=== PATIENT | male | born 1940 | race Caucasian/White ===

== ENCOUNTER 2021-11-24 07:09 | Day surgery (SDC) | payer OTHER ==
[~2021-11-24] VITALS: Ht 160 cm; Wt 66.7 kg
[2021-11-24] MEDS ORDERED: ARTICAINE HCL/EPINEPHRINE 4%/1:200,000 BIT 1.7 ML CARTRIDGE IJ ONE (09:00)
[2021-11-24] MEDS ORDERED: NS 250 ML BAG IV ONE (09:00)
[2021-11-24] MEDS ORDERED: BENZOCAINE 20% GEL 32 GM BOTTLE MM ONE (09:00)
[2021-11-24] MEDS ORDERED: NS IRRIG SOLN 1000 ML IR ONE (09:00)
[2021-11-24 12:56] VITALS: BP_SYST 132
== END 2021-11-24 11:30 | disposition home or self-care (01) ==
LOC: SDS 07:09 → SMU 08:25 → SDS 11:30
PROVIDERS: ATTEND Dentist General Practice
DX: M27.2 Inflammatory conditions of jaws (principal); M89.8X0 Other specified disorders of bone, multiple sites; M26.601 Right temporomandibular joint disorder, unspecified; K05.223 Aggressive periodontitis, generalized, severe; K08.421 Partial loss of teeth due to periodontal diseases, class I; M27.62 Post-osseointegration biological failure of dental implant; M06.9 Rheumatoid arthritis, unspecified; E11.9 Type 2 diabetes mellitus without complications; E78.5 Hyperlipidemia, unspecified; I10 Essential (primary) hypertension; Z79.899 Other long term (current) drug therapy; Z20.822 Contact with and (suspected) exposure to COVID-19
CPT/HCPCS: 21026; 21210; 21248; 36415; 70140; 87426; C1713; J7050